=== PATIENT | female | born 1990 | race Caucasian/White ===

== ENCOUNTER 2021-05-02 16:46 | Inpatient (IN) ==
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
[2021-05-02 17:59] LABS: Amphetamines+Metham, Urine Neg (Neg); Barbiturates, Urine Neg (Neg); Benzodiazepine, Urine Neg (Neg); Cocaine, Urine Neg (Neg); MDMA (Ecstacy), Urine Neg (Neg); Methadone, Urine Neg (Neg); Opiate, Urine Neg (Neg); Phencyclidine, Urine Neg (Neg)
--- NOTE | 2021-05-02 19:36 | Emergency Department Note ---
ED Visit Note 1935: Signout from Dr. Dunham. 30-year-old female with substance abuse having suicidal ideation. Awaiting psychiatric bed placement. 0200: Still awaiting placement. Case signed out to Dr. Perdomo .
[2021-05-02] MEDS ORDERED: LORazepam 1 MG TAB SL STA (20:15)
--- NOTE | 2021-05-03 01:51 | Emergency Department Note ---
ED Visit Note The case was signed out to me at change of shift awaiting bed placement. Patient is a voluntary admission for suicidal ideation. 0230: The bed search has been suspended at this time The patient has been resting throughout the night. The case will be signed out to Dr. Ruiz at change of shift this morning and the bed search will be resumed. .
--- NOTE | 2021-05-03 06:38 | Emergency Department Note ---
ED Visit Note Received this patient in signout from overnight. See the previous notes for full details. Patient evidently significantly anxious with depression and some suicidal ideation. Patient on a voluntary basement is wishing for inpatient mental health treatment. Bed search will resume this morning after being unsuccessful last evening. Patient bit anxious this morning given a dose of Ativan to help with this. Signed out pending placement at end of shift .
[2021-05-03] MEDS ORDERED: LORazepam 1 MG TAB PO STA (09:29)
[2021-05-03] MEDS ORDERED: LORazepam 1 MG TAB SL STA (13:54)
--- NOTE | 2021-05-03 15:16 | Emergency Department Note ---
ED Visit Note This patient was signed to me at shift change by Dr. Ruiz. The patient has been medically cleared she is voluntarily awaiting placement. She has been stable. She was further evaluated by [facility] and has been accepted there and will be voluntarily admitted for further inpatient treatment and evaluation. She has been stable and cooperative while in the ED. .
[2021-05-03] MEDS ORDERED: ALUMINUM/MAGNESIUM SUSP 30 ML UDC PO PRN (16:53)
[2021-05-03] MEDS ORDERED: ACETAMINOPHEN 325 MG TAB PO PRN (16:53)
[2021-05-03] MEDS ORDERED: hydrOXYzine HCl 25 MG TAB PO PRN ×2 (16:53)
[2021-05-03] MEDS ORDERED: SODIUM CHLORIDE 0.65% NA SOLN 45 ML (OCEAN) PRN (16:53)
[2021-05-03] MEDS ORDERED: BISMUTH SUBSALICYLATE LIQD 236 ML PO PRN (16:53)
[2021-05-03] MEDS ORDERED: MAGNESIUM HYDROXIDE SUSP 30 ML UDC PO PRN (16:53)
[2021-05-03] MEDS: NICOTINE POLACRILEX 2 MG GUM MT PRN (19:56)
--- NOTE | 2021-05-04 09:11 | History & Physical ---
Date of Service May 04, 2021 Impression / Recommendations Impression 30 yo female with a history of prior inpatient psych hospitalization and/or rehab in 2020 presented with difficulty functioning at custodial with non-specific paranoia, tangentiality, intermittent SI and anxiety complaints. She has very little support. (1) Depressive disorder, not elsewhere classified: The patient was admitted to the [facility] ([facility] unit) on q15 min checks (behavioral with suicide precautions) for safety. The patient will participate in group, recreational, and milieu therapies and will be offered additional individual and family sessions as clinically appropriate. Vistaril prn. Therapy referral. Inventory Assets Strengths: help seeking, can return to custodial Needs: improve coping skills, normalize sleep Risk Factors Assessment : Yes Do You Have Access To A Gun?: No Mental Health Diagnoses: Yes Previous Attempt: No Previous Psychiatric Hospitalization: Yes Protective Factors Assessment Responsible for Young Children: No Employed: No Supportive Family: No Psychiatric History Identifying Data MONIE PIRES is a 30-year-old F who has been residing at [facility], has a history of prior inpatient psychiatric hospitalization, and was admitted on 05/03/21 16:51 on a 201 voluntary commitment for SI and severe anxiety. Chief Complaint "I hadn't slept for 3 days and was having one of my manic spells". History of Present Illness Agustina initially presented to the ED in the afternoon of 05/02/21. She reported feeling very anxious and was cleared for discharge only to return during the same shift complaining of non-specific paranoia and suicidal ideation. During b oth presentations she was noted to be somewhat tangential, difficult to obtain history from. She expressed that she worried someone called the custodial looking for her and/or that she was manic. During her hours in the emergency room she was able to sleep and was not agitated but continued to express intermittent thoughts to cut her wrists. She received prn Ativan for anxiety there and was seeking additional last pm on unit but had been told she would not receive controlled substances here given hx of rehab, particularly when she is rather avoidant about past use/diagnoses. She reports not liking to take new medications and that was using prn Neurontin following her discharge from [facility] within the past 6 months. She is not able to identify any local supports. She denies urges to self injure at this time but seems to have some thought blocking which she attributes to medication. She denies hallucinations or hx of delusions. She states that these periods where she feels energized and up for 4 days at a time occur a few times a year and she feels more anxious that something bad may happen but otherwise cannot elaborate. She denies change in use/other risky behavior. Past Psychiatric History Current Psychiatric Diagnosis: Unspecified Depressive Disorder Outpatient Services: none other than custodial staff Previous Psych Admissions: [facility] 2020, can't recall rehab name (or won't) Do You Have Access To A Gun?: No History of Previous Suicide Attempt: No Describe Attempts in the Past: denies Past Medication Trials: unclear, no gabapentin listed in surescripts (?for detox) Past Head Trauma/Neuro History History of Concussion/Seizure: No Allergies Allergy/AdvReac Type Severity Reaction Status Date / Time No Known Allergies Allergy Unverified 05/03/21 06:28 Home Medications Medication Instructions Recorded Confirmed Type No Known Home Medications 05/03/21 05/03/21 History Family History Family History of: Doesn't Know Alcohol History Hx of Alcohol Use Over the Past 12 Months: Yes (Occasional) AUDIT Total Score: 3 Smoking Use Have You Smoked or Used Tobacco Products in the Last 30 Days: Yes tobacco type: cigarettes Smoking Status: Current every day smoker Substance History Hx of Prescription Med Misuse Over the Past 12 Months: No Hx of Over the Counter Med Misuse Over the Past 12 Months: No Hx of Inhalent Misuse Over the Past 12 Months: No Hx of Organic Substance Use Over the Past 12 Months: No Hx of Illegal Substances/Street Drug Use Over Past 12 Months: Yes (meth 6 months ago) Problems as a Result of Past Substance Use: Job Loss and Life out of Control Personal History Living Arrangements: Temporary Prison Childhood: [facility] Marital Status: Single Beliefs That Will Affect Care: None Current Legal Problems: No Additional Comments: very limited historian Patient History Medical History No pertinent family history in first degree relatives No pertinent past medical history Social History Smoking Status: Current every day smoker Hx Alcohol Use: No Hx Substance Use: Yes Preferred Language: Kiswahili Communication Ability: Effective Braider Operator Required: No Beliefs That Will Affect Care: None Feels Safe at Home: Yes Assistive Devices: None Review of Systems Review of Systems: All systems reviewed & are unremarkable except as noted in HPI & below Physical Exam Psychiatric: Orientation: alert, oriented to person and oriented to place disheveled Eye Contact: + poor eye contact Motor Behavior: no abnormal motor movements Speech: + abnormal rate/rhythm/volume of speech (non spontaneous) Affect: + blunted affect Mood: + anxious mood Thought Process: + thought blocking (vs avoidant) and + concrete thought process Thought Content: not paranoid and no delusions Suicidal Thoughts: denies suicidal thoughts Homicidal Thoughts: denies homicidal thoughts Hallucinations: no auditory hallucinations and no visual hallucinations Cognition: language grossly intac t; + attention not intact Insight: + limited insight Judgement: + limited judgement Vital Signs (Past 24 Hours): Last Vital Signs Temp 36.6 C 05/04/21 06:36 Pulse 83 05/04/21 06:37 Resp 16 05/04/21 06:36 BP 106/66 05/04/21 06:37 Pulse Ox 97 05/03/21 17:05 Exam Statement: A physical exam was performed in the ED by Dr. Dunham for the purposes of medical clearance. I accept that physical as correct and adequate for the purposes of the inpatient physical exam. Results & Data ([facility]) Laboratory Results Labs 05/02/21 05/02/21 05/02/21 17:00 17:41 18:30 Urine Opiates Screen Neg Ur Methadone, Qual Neg Urine Barbiturates Neg Ur Phencyclidine (PCP) Neg U Amphetamin/Meth Scrn Neg MDMA (Ecstasy) Screen Neg U Benzodiazepines Scrn Neg Ur Cocaine Metabolite Neg U Marijuana (THC) Screen Neg Ethyl Alcohol mg/dL < 10.0 SARS-CoV-2, RNA, NAAT NEGATIVE additional CBC with dif, BUN/Cr, LFT, TSH, Lytes, urine preg from initial ED presentation were unremarkable. Current Inpatient Medications Current Inpatient Medications: Current Inpatient Medications Acetaminophen (Acetaminophen 325 Mg Tab) 650 mg PO Q4H PRN PRN Reason: Headache or Minor Fever Stop: 06/02/21 16:52 Al Hydrox/Mg Hydrox/Simethicone (Aluminum/Magnesium Susp 30 Ml Udc) 30 ml PO Q4H PRN PRN Reason: GI Upset Stop: 06/02/21 16:52 Bismuth Subsalicylate (Bismuth Subsalicylate Liqd 236 Ml) 15 ml PO PRN PRN PRN Reason: Loose Stool Stop: 06/02/21 16:52 Hydroxyzine HCl (Hydroxyzine Hcl 25 Mg Tab) 50 mg PO HSZ PRN PRN Reason: Insomnia Stop: 06/02/21 16:52 Last Admin: 05/04/21 01:53 Dose: 50 mg Documented by: Hydroxyzine HCl (Hydroxyzine Hcl 25 Mg Tab) 25 mg PO Q4H PRN PRN Reason: Anxiety Stop: 06/02/21 16:52 Magnesium Hydroxide (Magnesium Hydroxide Susp 30 Ml Udc) 30 ml PO DAILY PRN PRN Reason: Constipation Stop: 06/02/21 16:52 Nicotine Polacrilex (Nicotine Polacrilex 2 Mg Gum) 1 piece MT PRN PRN PRN Reason: nicotine cravings Stop: 06/02/21 19:44 Last Admin: 05/03/21 19:56 Dose: 1 piece Documented by: Sodium Chloride (Sodium Chloride 0.65% Na Soln 45 Ml ([place])) 1 - 2 sprays NA PRN PRN PRN Reason: Nasal Dryness/Congestion Stop: 06/02/21 16:52
[2021-05-04] MEDS: NICOTINE POLACRILEX 2 MG GUM MT PRN ×3 (11:46→20:20)
--- NOTE | 2021-05-05 12:27 | Discharge Summary ---
Date of Service May 05, 2021 History of Present Illness Agustina initially presented to the ED in the afternoon of 05/02/21. She reported feeling very anxious and was cleared for discharge only to return during the same shift complaining of non-specific paranoia and suicidal ideation. During both presentations she was noted to be somewhat tangential, difficult to obtain history from. She expressed that she worried someone called the snf looking for her and/or that she was manic. During her hours in the emergency room she was able to sleep and was not agitated but continued to express intermittent thoughts to cut her wrists. She received prn Ativan for anxiety there and was seeking additional last pm on unit but had been told she would not receive controlled substances here given hx of rehab, particularly when she is rather avoidant about past use/diagnoses. She reports not liking to take new medications and that was using prn Neurontin following her discharge from [facility] within the past 6 months. She is not able to identify any local supports. She denies urges to self injure at this time but seems to have some thought blocking which she attributes to medication. She denies hallucinations or hx of delusions. She states that these periods where she feels energized and up for 4 days at a time occur a few times a year and she feels more anxious that something bad may happen but otherwise cannot elaborate. She denies change in use/other risky behavior. Physical Exam Psychiatric See admission H&P and DOD assessment. Vital Signs (Past 24 Hours) Last Vital Signs Temp 36.9 C 05/05/21 06:37 Pulse 51 L 05/05/21 06:37 Resp 16 05/05/21 06:37 BP 89/75 L 05/05/21 06:37 Pulse Ox 97 05/03/21 17:05 Principal Diagnosis depressive disorder unspecified Psychiatric Data See daily stay summary. In short, safety was maintained and the patient was cooperative with care. She was not interested in standing order medications or Vistaril prn. She slept throughout the day and overnight and did not engage in group programming. She was resistant to involving [facility] staff in her stay but ED had confirmed she could return there. She has out of [facility] medical assistance active which is a barrier to local therapy services and she is essentially declining follow up. Discussed how to access ongoing medical care rather than returning to the ED as part of her safety plan. She related some past response to Neurontin and remained med seeking with regards to Ativan. She agreed that she is not manic at this time and no evidence of manic behavior was noted on the unit. She was attentive to tasks last pm and eating meals. When told I was willing to prescribe a short supply of prn Neurontin at discharge should her sleep issues return she requested discharge which is appropriate given lack of ongoing inpatient criteria and poor engagement in treatment. Risks/benefits/alternatives reviewed re: Neurontin and she voiced understanding to not combine with sedating substances, ETOh, etc. Day of Discharge Assessment Today the patient voices readiness for discharge. They note improvement in mood and deny thoughts to harm self or others. Thought processes are improved from admission with ongoing rest. There is no evidence of psychosis. They agree to take mediations as prescribed and keep follow-up appointments. They are stable for discharge to outpatient level of care. Transition of Care Transition Of Care Record: was reviewed with the patient (as able) Advance Directives Advance Directives Information Provided: Yes Advance Directives: No Mental Health Advance Directive: No Advance Directives on File: No Living Will: No Power of Guide Plant: No Advance Directives Reason:: Declines as Mental Health Visit. Risk Factors Assessment : Yes Do You Have Access To A Gun?: No Mental Health Diagnoses: Yes Previous Attempt: No Previous Psychiatric Hospitalization: Yes Protective Factors Assessment Responsible for Young Children: No Employed: No Supportive Family: No Tobacco Cessation at Discharge Tobacco Cessation Medication Prescribed at Discharge: Offered & Pt Refused Total Time Total Time Spent: Greater Than 30 Minutes Discharge Data Lab Results 05/02/21 05/02/21 05/02/21 17:00 17:41 18:30 Urine Opiates Screen Neg Ur Methadone, Qual Neg Urine Barbiturates Neg Ur Phencyclidine (PCP) Neg U Amphetamin/Meth Scrn Neg MDMA (Ecstasy) Screen Neg U Benzodiazepines Scrn Neg Ur Cocaine Metabolite Neg U Marijuana (THC) Screen Neg Ethyl Alcohol mg/dL < 10.0 SARS-CoV-2, RNA, NAAT NEGATIVE Hospital Course (1) Depressive disorder, not elsewhere classified: The patient was admitted to the [facility] ([facility] mental health unit) on q15 min checks (behavioral with suicide precautions) for safety. The patient will participate in group, recreational, and milieu therapies and will be offered additional individual and family sessions as clinically appropriate. Santino coburnn. Therapy referral. Post Discharge Appointments Smoking Cessation Counseling Tobacco Cessation Medication Prescribed at Discharge: Offered & Pt Refused Contact Information Discharge [address]: [address] [place] [id number] Contact Information Comment: [facility] Discharge Plan Discharge Items Patient Disposition: Home - Self-Care Reason For Visit: UNSPECIFIED DEPRESSIVE DISORDER Discharge Diagnosis: depressive disorder unspecified Activity: Resume your previous activity Non-emergency contact: Primary Care Provider and Alignment Technician Call non-emergency contact if: you have any medication questions and your symptoms worsen Follow-up/Referrals: PCP,NO [Primary Care Provider] - Diet: Gluten Free and Vegan (no animal product) Addtl Attending Provider Instructions: SPECIAL CARE INSTRUCTIONS: 1. Follow through with your scheduled aftercare appointments. If unable to keep an appointment, please call to reschedule. 2. Take your medication only as prescribed. Medication should not be changed or stopped without the approval of your doctor. In the event of worsening symptoms or concerns about side effects, contact your doctor immediately. 3. Utilize new healthy coping skills, anger management skills, and stress management skills learned during your hospitalization. Journal feelings and process them with a support person. Identify stressors or situations that may result in relapse, deterioration or inappropriate behaviors and develop a plan to deal with those issues. 4. If your coping skills are ineffective and you are in crisis, contact your outpatient providers for direction. If unable to reach your providers, please call the [facility] CRISIS LINE AT , go to the [facility] walk-in center at [address], [address], [place], or go to the closest Emergency Room. 5. Avoid alcohol and un-prescribed drugs. 6. You have been provided with the Mental Health Advance Directives Pamphlet for your review. 7. Your condition is stable for discharge to outpatient level of care, but recovery is an ongoing process. Ifthoughts to harm yourself or others return, follow the safety plan developed during your stay. Planning for a safe return home includes securing weapons. Our treatment team recommends weaponsbe removed from the home until your outpatient provider reassesses your progress. In rare cases where the items themselvescannot be removed, guns and ammunitionshould be secured separatelyand keys stored by a reliable personoutside of the home. If you were admitted on an involuntary commitment, the police or other legal authorities may be involved in this process. AFTERCARE APPOINTMENTS: * Please call your insurance company prior to your scheduled appointment to confirm your aftercare providers are covered. Take your insurance information to your appointments. WHO TO CALL AND WHEN: Medical Emergencies: For questions or emergencies related to your hospital stay, please contact the Inpatient Behavioral Health Unit at [phone]. A mine equipment design engineer is on-call 23/10 for the Behavioral Health Unit for emergencies At any time you feel your situation is an emergency, you may also call 911 immediately. Pending Studies at Discharge: No Stand-Alone Forms: My [facility] [employer], Smoking Cessation Medications and DC Order Prescriptions: New gabapentin [Neurontin] 300 mg capsule 300 mg PO DAILY PRN (Reason: anxiety/insomnia) Qty: 14 RF: 0 Discharge Orders: Discharge Order (Routine); Ordered 05/05/21 Ordered By: Ellyn Cardona Admission Data Admit Date/Time: 05/03/21 16:51 Attending Provider: Ellyn Cardona Admit Provider: Ellyn Cardona Primary Care Provider: PCP,NO Other Interventions: PSY Interdisciplinary Discharge Planning Last Done: 05/05/21 07:46 Coding Level of Care Code 49050 D/C day mgmt > 30 min Diagnoses Depressive disorder, not elsewhere classified F32.89
[2021-05-05] MEDS: NICOTINE POLACRILEX 2 MG GUM MT PRN (12:57)
== END 2021-05-05 13:10 | disposition home or self-care (01) | DRG 881 ==
LOC: ED 16:46 → 3S 05-03 16:51